=== PATIENT | male | born 1990 | race African-American/Black ===

== ENCOUNTER 2019-12-01 01:43 | Inpatient (IN) | payer MEDICAID ==
[~2019-12-01] VITALS: Ht 170.2 cm; Wt 65.8 kg
[2019-12-01] MEDS ORDERED: SODIUM CHLORIDE 0.9% 1,000 ML IV ONE ×2 (07:09→08:14)
[2019-12-01] MEDS ORDERED: MORPHINE SULFATE 4 MG/ML CPJ (NOT FOR IM USE) IV ONE (07:15)
[2019-12-01 07:40] LABS: HEMATOCRIT. 54.2 % (42.0-52.0); HEMOGLOBIN. 16.9 g/dL (14.0-18.0); MEAN CORPUSCULAR HEMOGLOBIN 27.1 pg (28.0-32.0); MEAN CORPUSCULAR VOLUME 86.6 fL (80.0-94.0); MEAN PLATELET VOLUME 10.5 fl (7.4-10.4); PLATELET 311 x1000/uL (130-400); RED BLOOD CELL COUNT 6.26 mill/uL (4.7-6.1); RED CELL DISTRIBUTION WIDTH 12.6 % (11.6-14.6)
[2019-12-01 07:47] LABS: CHLORIDE 99 mEq/L (98-107)
[2019-12-01 07:57] LABS: BETA HYDROXYBUTYRATE 9.8 mMol/L (0.0-0.3)
[2019-12-01 08:08] LABS: PLATELET ESTIMATE NORMAL
[2019-12-01] MEDS ORDERED: INSULIN REGULAR (DRIP) 100 UNITS in SODIUM CHLORIDE 0.9% 99 ML IV SCH (08:30)
[2019-12-01 08:39] LABS: BG CARBOXYHEMOGLOBIN 0.9 % (0.5-1.5); BG DEOXYHEMOGLOBIN 2.3 % (0.0-5.0); BG HCO3 ACT 5.7 mmol/L (22.0-26.0); BG METHEMOGLOBIN 0.3 % (0.0-1.5); BG OXYGEN SATURATION 97.7 % (92.0-98.5); BG OXYHEMOGLOBIN 96.5 % (94.0-97.0); BG PCO2 19.1 mmHg (35.0-45.0); BG PH 7.095 (7.350-7.450); BG PO2 122.6 mmHg (75.0-100.0); BG SAMPLE SITE RIGHT RADIAL; BG TOTAL HEMOGLOBIN 16.4 g/dL (12.0-18.0); BG VENT MODE ROOM AIR
[2019-12-01] MEDS ORDERED: INSULIN REGULAR (DRIP) 100 UNITS in SODIUM CHLORIDE 0.9% 100 ML IV SCH (09:10)
[2019-12-01] MEDS ORDERED: SODIUM CHLORIDE 0.9% 1,000 ML IV SCH (09:10)
[2019-12-01] MEDS ORDERED: DEXTROSE 50% WATER 50ML SYRINGE IV PRN ×2 (09:15)
[2019-12-01] MEDS ORDERED: CLONIDINE 0.1MG TABLET PO PRN (09:15)
[2019-12-01] MEDS ORDERED: MAGNESIUM/ALUMINUM HYDROXIDE/SIMETHICONE 30ML UDC PO PRN (09:15)
[2019-12-01] MEDS ORDERED: IPRATROPIUM/ALBUTEROL 0.5-3(2.5)MG/3ML NEB NEB PRN (09:15)
[2019-12-01] MEDS ORDERED: ACETAMINOPHEN 325MG TABLET PO PRN (09:15)
[2019-12-01] MEDS ORDERED: ONDANSETRON HCL 4MG/2ML INJ IV PRN (09:15)
[2019-12-01] MEDS ORDERED: NITROGLYCERIN 0.4MG TABLET SL SL PRN (09:15)
[2019-12-01] MEDS ORDERED: DOCUSATE SODIUM 100MG CAPSULE PO PRN (09:15)
[2019-12-01] MEDS: BLOOD SUGAR DIAGNOSTIC STRIP TEST SCH ×8 (10:02→17:26)
[2019-12-01] MEDS: DEXT 5%/0.9% NACL 1,000 ML IV SCH (16:18)
[2019-12-01 17:04] LABS: CHLORIDE 113 mEq/L (98-107)
[2019-12-01 17:09] LABS: PHOSPHORUS 2.4 mg/dL (2.5-4.9)
[2019-12-01 19:37] LABS: *AMPHETAMINES SCREEN URINE NEGATIVE (NEGATIVE); *BARBITURATES SCREEN URINE NEGATIVE (NEGATIVE); *BENZODIAZEPINES SCREEN URINE NEGATIVE (NEGATIVE); *COCAINE SCREEN URINE NEGATIVE (NEGATIVE); METHADONE URINE SCREEN NEGATIVE (NEGATIVE); OPIATES URINE SCREEN PRESUMTIVE POSITIVE (NEGATIVE)
[2019-12-01 19:38] LABS: CANNABINOID URINE SCREEN PRESUMTIVE POSITIVE (NEGATIVE); PHENCYCLIDINE URINE SCREEN NEGATIVE (NEGATIVE)
[2019-12-01] MEDS ORDERED: KETOROLAC 15MG/ML VIAL IV PRN (22:00)
[2019-12-02] MEDS ORDERED: SODIUM PHOS,M-BASIC-D-BASIC 10 MM in DEXT 5% WATER 250 ML IV NR (03:00)
[2019-12-02 06:35] LABS: BASOPHILS % 0.6 % (0.0-2.0); EOSINOPHILS % 0.1 % (0.0-5.0); HEMATOCRIT. 45.9 % (42.0-52.0); HEMOGLOBIN. 15.1 g/dL (14.0-18.0); LYMPHOCYTES % 9.2 % (20.0-50.0); MEAN PLATELET VOLUME 9.2 fl (7.4-10.4); MONOCYTES % 13.1 % (2.0-8.0); PLATELET 261 x1000/uL (130-400); RED CELL DISTRIBUTION WIDTH 12.4 % (11.6-14.6)
[2019-12-02 06:49] LABS: PHOSPHORUS 2.1 mg/dL (2.5-4.9)
[2019-12-02 09:14] LABS: BASOPHILS % 0.7 % (0.0-2.0); EOSINOPHILS % 0.1 % (0.0-5.0); HEMATOCRIT. 46.8 % (42.0-52.0); HEMOGLOBIN. 15.5 g/dL (14.0-18.0); LYMPHOCYTES % 11.5 % (20.0-50.0); MEAN CORPUSCULAR HEMOGLOBIN 27.2 pg (28.0-32.0); MEAN CORPUSCULAR VOLUME 82.2 fL (80.0-94.0); MONOCYTES % 13.8 % (2.0-8.0); NEUTROPHILS % 73.9 % (40.0-76.0); RED CELL DISTRIBUTION WIDTH 12.4 % (11.6-14.6)
[2019-12-02 09:23] LABS: CHLORIDE 112 mEq/L (98-107)
[2019-12-02] MEDS ORDERED: DEXTROSE 50% WATER 50ML SYRINGE IV PRN (10:15)
[2019-12-02 11:08] LABS: MEAN PLATELET VOLUME 9.4 fl (7.4-10.4); PLATELET 268 x1000/uL (130-400)
[2019-12-02 12:00] VITALS: BP 138/62
[2019-12-02] MEDS: DEXT 5%/0.9% NACL 1,000 ML IV SCH (12:00)
[2019-12-02] MEDS: INSULIN LISPRO 100 UNITS/ML SUBCUT SCH ×5 (12:20→21:35)
[2019-12-02] MEDS: BLOOD SUGAR DIAGNOSTIC STRIP TEST SCH ×3 (12:32→21:24)
[2019-12-02] MEDS: PANTOPRAZOLE SODIUM 40 MG/VIAL IV SCH (12:32)
[2019-12-02] MEDS: LISINOPRIL 20MG TABLET PO SCH ×2 (12:33→21:14)
[2019-12-02 13:32] VITALS: BP 138/61
[2019-12-02] MEDS ORDERED: SODIUM PHOS,M-BASIC-D-BASIC 20 MM in DEXT 5% WATER 243.3333 ML IV SCH (14:00)
[2019-12-02 20:00] VITALS: BP 112/53
[2019-12-03] VITALS: BP 115/55
[2019-12-03 04:00] VITALS: BP 124/46
[2019-12-03] MEDS: INSULIN LISPRO 100 UNITS/ML SUBCUT SCH ×4 (06:22→13:46)
[2019-12-03] MEDS: BLOOD SUGAR DIAGNOSTIC STRIP TEST SCH ×2 (06:26→12:56)
[2019-12-03 08:00] VITALS: BP 134/71
[2019-12-03] MEDS: PANTOPRAZOLE SODIUM 40 MG/VIAL IV SCH (09:13)
[2019-12-03] MEDS: LISINOPRIL 20MG TABLET PO SCH (09:14)
[2019-12-03] MEDS: INSULIN GLARGINE UD 100 UNITS/ML SYR SUBCUT SCH ×2 (11:51→11:53)
[2019-12-03 12:00] VITALS: BP 131/76
[2019-12-03 15:02] VITALS: BP 134/74
[2019-12-03 16:00] VITALS: BP 128/82
== END 2019-12-03 17:23 | disposition home or self-care (01) | DRG 420 ==
LOC: ER 01:43 → EDBEDREQ 08:35 → EDBEDREQTM 08:35 → 6EST 12-02 08:30 → EDBEDREQSVC 12-02 10:24 → ENRESERV 12-02 10:45
PROVIDERS: ADMIT Internal Medicine; ATTEND Internal Medicine
DX: E11.10 Type 2 diabetes mellitus with ketoacidosis without coma (principal); E87.5 Hyperkalemia; E87.1 Hypo-osmolality and hyponatremia; Z79.4 Long term (current) use of insulin; Z91.14 Patient's other noncompliance with medication regimen; Z91.19 Patient's noncompliance with other medical treatment and regimen
CPT/HCPCS: 36415; 36600; 71045; 80048; 80053; 80305; 82010; 82375; 82805; 82962; 83036; 83735; 84100; 84484; 85025; 93005; 93970; 99291; C9113; J1815; J2270; J3490; J7030; J7040; J7042; J7050; J7060

== ENCOUNTER 2022-10-24 16:37 | Inpatient (IN) | payer MEDICAID, OTHER ==
[~2022-10-24] VITALS: Ht 172.7 cm; Wt 69.4 kg
[2022-10-24] MEDS ORDERED: SODIUM CHLORIDE 0.9% 1,000 ML IV ONE ×4 (17:30→20:45)
[2022-10-24 18:38] LABS: CHLORIDE 96 mEq/L (98-107)
[2022-10-24 18:43] LABS: HEMATOCRIT. 54.2 % (42.0-52.0); HEMOGLOBIN. 15.7 g/dL (14.0-18.0); MEAN CORPUSCULAR HEMOGLOBIN 26.4 pg (28.0-32.0); MEAN CORPUSCULAR VOLUME 91.3 fL (80.0-94.0); MEAN PLATELET VOLUME 9.6 fl (7.4-10.4); PLATELET 528 x1000/uL (130-400); RED BLOOD CELL COUNT 5.94 mill/uL (4.7-6.1); RED CELL DISTRIBUTION WIDTH 14.4 % (11.6-14.6)
[2022-10-24 18:48] LABS: ETHANOL BLOOD < 10 mg/dL
[2022-10-24] MEDS ORDERED: INSULIN REGULAR (DRIP) 100 UNITS in SODIUM CHLORIDE 0.9% 99 ML IV ONE (19:45)
[2022-10-24] MEDS ORDERED: INSULIN REGULAR 100U/100ML PMX 100 ML IV SCH (20:00)
[2022-10-24] MEDS ORDERED: SODIUM BICARBONATE 8.4% 1 MEQ/ML 50ML SYR IV ONE ×2 (20:15→20:45)
[2022-10-24] MEDS ORDERED: INSULIN REGULAR (HUMULIN R) 300UNITS/3ML VIAL IV ONE (20:15)
[2022-10-24 20:31] LABS: CLARITY URINE CLEAR (CLEAR); COLOR URINE YELLOW (YELLOW); KETONES URINE 3+ (NEGATIVE); LEUKOCYTE ESTERASE URINE NEGATIVE (NEGATIVE); NITRITE URINE NEGATIVE (NEGATIVE); OCCULT BLOOD URINE TRACE (NEGATIVE); PROTEIN URINE 1+ (NEGATIVE); SPECIFIC GRAVITY URINE 1.019 (1.005-1.030); UROBILINOGEN URINE 0.2 E.U./dL (0.2-1.0)
[2022-10-24 20:32] LABS: BG BASE EXCESS -28.4 mmol/L (-2.0-2.0); BG CARBOXYHEMOGLOBIN 0.4 % (0.5-1.5); BG DEOXYHEMOGLOBIN 1.9 % (0.0-5.0); BG FRACTION INSPIRED OXYGEN 21; BG HCO3 ACT 2.6 mmol/L (22.0-26.0); BG METHEMOGLOBIN 0.4 % (0.0-1.5); BG OXYGEN SATURATION 98.1 % (92.0-98.5); BG OXYHEMOGLOBIN 97.3 % (94.0-97.0); BG PCO2 12.5 mmHg (35.0-45.0); BG PH 6.931 (7.350-7.450); BG PO2 141.8 mmHg (75.0-100.0); BG SAMPLE SITE LEFT RADIAL; BG TOTAL HEMOGLOBIN 15.1 g/dL (12.0-18.0); BG VENT MODE ROOM AIR
[2022-10-24 20:45] LABS: *AMPHETAMINES SCREEN URINE PRESUMTIVE POSITIVE (NEGATIVE); *BARBITURATES SCREEN URINE NEGATIVE (NEGATIVE); *BENZODIAZEPINES SCREEN URINE NEGATIVE (NEGATIVE); *COCAINE SCREEN URINE NEGATIVE (NEGATIVE); CANNABINOID URINE SCREEN PRESUMTIVE POSITIVE (NEGATIVE); METHADONE URINE SCREEN NEGATIVE (NEGATIVE); OPIATES URINE SCREEN NEGATIVE (NEGATIVE); PHENCYCLIDINE URINE SCREEN NEGATIVE (NEGATIVE)
[2022-10-24] MEDS ORDERED: MAGNESIUM/ALUMINUM HYDROXIDE/SIMETHICONE 30ML UDC PO PRN (21:15)
[2022-10-24] MEDS ORDERED: DIPHENHYDRAMINE 50MG/ML VIAL IV PRN (21:15)
[2022-10-24] MEDS ORDERED: ONDANSETRON HCL 4MG/2ML INJ IV PRN (21:15)
[2022-10-24] MEDS ORDERED: HYDROCODONE/ACETAMINOPHEN 7.5/325MG TABLET PO PRN (21:15)
[2022-10-24] MEDS ORDERED: NA PHOS,M-B/NA PHOS,DI-BA ENEMA 118ML PR PRN (21:15)
[2022-10-24] MEDS ORDERED: HYDROCODONE/ACETAMINOPHEN 5/325MG TABLET PO PRN (21:15)
[2022-10-24] MEDS ORDERED: DOCUSATE SODIUM 100MG CAPSULE PO PRN (21:15)
[2022-10-24] MEDS ORDERED: IPRATROPIUM/ALBUTEROL 0.5-3(2.5)MG/3ML NEB HHN PRN (21:15)
[2022-10-24] MEDS ORDERED: ACETAMINOPHEN 325MG TABLET PO PRN ×2 (21:15)
[2022-10-24] MEDS ORDERED: GUAIFENESIN 200MG/10ML SUGAR FREE UDC PO PRN (21:15)
[2022-10-24] MEDS ORDERED: CLONIDINE 0.1MG TABLET PO PRN (21:15)
[2022-10-24 21:55] LABS: CHLORIDE 105 mEq/L (98-107)
[2022-10-24] MEDS ORDERED: ENOXAPARIN 40MG/0.4ML SYR SUBCUT SCH (21:59)
[2022-10-24] MEDS ORDERED: SODIUM CHLORIDE 0.45% 1,000 ML IV ONE (22:00)
[2022-10-24] MEDS ORDERED: CALCIUM GLUCONATE 1GM PREMIX 50 ML IV NR (22:00)
[2022-10-24 22:07] LABS: PLATELET ESTIMATE MARKEDLY INCREASED
[2022-10-24 22:20] LABS: BETA HYDROXYBUTYRATE 12.8 mMol/L (0.0-0.3)
[2022-10-24 22:31] LABS: BG BASE EXCESS -20.4 mmol/L (-2.0-2.0); BG CARBOXYHEMOGLOBIN 0.8 % (0.5-1.5); BG DEOXYHEMOGLOBIN 1.7 % (0.0-5.0); BG FRACTION INSPIRED OXYGEN 21; BG HCO3 ACT 6.2 mmol/L (22.0-26.0); BG METHEMOGLOBIN 0.6 % (0.0-1.5); BG OXYGEN SATURATION 98.3 % (92.0-98.5); BG OXYHEMOGLOBIN 96.9 % (94.0-97.0); BG PCO2 18.1 mmHg (35.0-45.0); BG PH 7.152 (7.350-7.450); BG PO2 109.2 mmHg (75.0-100.0); BG SAMPLE SITE LEFT RADIAL; BG VENT MODE ROOM AIR
[2022-10-24 23:19] LABS: CHLORIDE 112 mEq/L (98-107)
[2022-10-24 23:30] LABS: HEMATOCRIT. 48.6 % (42.0-52.0); HEMOGLOBIN. 14.9 g/dL (14.0-18.0); MEAN CORPUSCULAR HEMOGLOBIN 26.6 pg (28.0-32.0); MEAN CORPUSCULAR VOLUME 86.9 fL (80.0-94.0); MEAN PLATELET VOLUME 9.4 fl (7.4-10.4); PLATELET 445 x1000/uL (130-400); RED BLOOD CELL COUNT 5.59 mill/uL (4.7-6.1); RED CELL DISTRIBUTION WIDTH 13.6 % (11.6-14.6)
[2022-10-24 23:34] LABS: HDL CHOLESTEROL 71 mg/dL (40-59); LDL CHOLESTEROL 114 mg/dL (5-100); T4 FREE 1.02 ng/dL (0.76-1.46)
[2022-10-24 23:45] VITALS: BP 114/76
[2022-10-25] VITALS (47 sets, daily range): BP systolic 103–157; BP diastolic 43–100
[2022-10-25] MEDS ORDERED: INSULIN REGULAR 100U/100ML PMX 100 ML IV PRN
[2022-10-25] MEDS ORDERED: CEFTRIAXONE 1 G PREMIX 50 ML IV ONE (00:30)
[2022-10-25] MEDS ORDERED: CEFTRIAXONE 1,000 MG in DEXTROSE 5% WATER 50 ML IV SCH (01:00)
[2022-10-25 02:52] LABS: CHLORIDE 121 mEq/L (98-107)
[2022-10-25] MEDS ORDERED: KCL 20MEQ/100ML PREMIX 100 ML IV NR (03:00)
[2022-10-25] MEDS ORDERED: DEXT 5%/0.45% NACL 1000ML 1,000 ML IV ONE (03:30)
[2022-10-25] MEDS: BLOOD SUGAR DIAGNOSTIC STRIP TEST SCH ×17 (05:01→23:45)
[2022-10-25] MEDS ORDERED: POTASSIUM CHLORIDE INJ 40 MEQ in DEXT 5% WATER 250 ML IV ONE (05:15)
[2022-10-25 08:17] LABS: HEMATOCRIT. 44.2 % (42.0-52.0); HEMOGLOBIN. 14.3 g/dL (14.0-18.0); MEAN CORPUSCULAR HEMOGLOBIN 26.3 pg (28.0-32.0); MEAN CORPUSCULAR VOLUME 81.4 fL (80.0-94.0); MEAN PLATELET VOLUME 8.7 fl (7.4-10.4); PLATELET 388 x1000/uL (130-400); RED BLOOD CELL COUNT 5.43 mill/uL (4.7-6.1); RED CELL DISTRIBUTION WIDTH 13.3 % (11.6-14.6)
[2022-10-25 08:23] LABS: CHLORIDE 123 mEq/L (98-107)
[2022-10-25] MEDS ORDERED: DEXTROSE 50% WATER 50ML SYRINGE IV PRN ×3 (08:30→17:30)
[2022-10-25 08:38] LABS: BETA HYDROXYBUTYRATE 1.5 mMol/L (0.0-0.3)
[2022-10-25 08:42] LABS: PHOSPHORUS 0.5 mg/dL (2.5-4.9)
[2022-10-25] MEDS: KCL 20MEQ/100ML X 2 FOR TOTAL KCL 40MEQ/200ML IV SCH ×2 (08:48→08:50)
[2022-10-25] MEDS: PANTOPRAZOLE 40MG DR TABLET PO SCH ×2 (08:49→21:19)
[2022-10-25] MEDS ORDERED: INSULIN REGULAR 100U/100ML PMX 100 ML IV SCH (09:00)
[2022-10-25 09:45] LABS: PLATELET ESTIMATE SLIGHTLY INCREASED
[2022-10-25] MEDS: ENOXAPARIN 40MG/0.4ML SYR SUBCUT SCH (09:55)
[2022-10-25] MEDS ORDERED: POTASSIUM PHOS,M-BASIC-D-BASIC 20 MMOL in DEXT 5% WATER 243.3333 ML IV NR (10:30)
[2022-10-25] MEDS ORDERED: VANCOMYCIN 1G PREMIX 200 ML IV SCH (11:00)
[2022-10-25 11:04] LABS: PLATELET ESTIMATE NORMAL
[2022-10-25] MEDS ORDERED: NALOXONE HCL 0.4MG/ML VIAL IV PRN (11:15)
[2022-10-25] MEDS ORDERED: METRONIDAZOLE 500 MG PREMIX 100 ML IV SCH (13:00)
[2022-10-25 13:03] LABS: CHLORIDE 124 mEq/L (98-107)
[2022-10-25] MEDS: DEXT 5%/0.45% NACL 1000ML 1,000 ML IV SCH ×2 (13:41→20:45)
[2022-10-25] MEDS: PIPERACILLIN/TAZOBACTAM 3.375 G in DEXTROSE 5% WATER 50 ML IV SCH ×2 (13:42→21:18)
[2022-10-25] MEDS ORDERED: VANCOMYCIN 1500MG in DEXTROSE 5% WATER 250ML IV NR (14:00)
[2022-10-25] MEDS: INSULIN REGULAR 100U/100ML PMX 100 ML IV SCH ×3 (15:27→20:43)
[2022-10-25] MEDS ORDERED: BLOOD SUGAR DIAGNOSTIC STRIP TEST SCH (17:50)
[2022-10-25] MEDS: INSULIN LISPRO 100 UNITS/ML SUBCUT SCH ×3 (17:50→20:17)
[2022-10-25 17:58] LABS: CHLORIDE 115 mEq/L (98-107)
[2022-10-25] MEDS ORDERED: INSULIN GLARGINE 100 UNITS/ML SUBCUT SCH (22:00)
[2022-10-25 22:22] LABS: CHLORIDE 116 mEq/L (98-107)
[2022-10-26] VITALS (28 sets, daily range): BP systolic 90–152; BP diastolic 45–116
[2022-10-26] MEDS ORDERED: VANCOMYCIN 1.25GM PMX (XELLIA) 250 ML IV SCH
[2022-10-26 01:09] LABS: CHLORIDE 111 mEq/L (98-107)
[2022-10-26] MEDS: DEXT 5%/0.45% NACL 1000ML 1,000 ML IV SCH ×2 (03:42→10:49)
[2022-10-26] MEDS: PIPERACILLIN/TAZOBACTAM 3.375 G in DEXTROSE 5% WATER 50 ML IV SCH (05:11)
[2022-10-26] MEDS: INSULIN LISPRO 100 UNITS/ML SUBCUT SCH (07:50)
[2022-10-26] MEDS: BLOOD SUGAR DIAGNOSTIC STRIP TEST SCH ×4 (08:29→10:49)
[2022-10-26] MEDS: PANTOPRAZOLE 40MG DR TABLET PO SCH (08:56)
[2022-10-26] MEDS: ENOXAPARIN 40MG/0.4ML SYR SUBCUT SCH (08:57)
[2022-10-26] MEDS: INSULIN REGULAR 100U/100ML PMX 100 ML IV SCH (10:52)
== END 2022-10-26 13:00 | disposition left against medical advice (07) | DRG 720 ==
LOC: ER 16:37 → EDBEDREQ 20:11 → SUPCPDRO 20:16 → ENRESERV 22:29 → CVICU 23:35
PROVIDERS: ADMIT Internal Medicine; ATTEND Internal Medicine
DX: A41.9 Sepsis, unspecified organism (principal); N17.0 Acute kidney failure with tubular necrosis; G92.8 Other toxic encephalopathy; E10.10 Type 1 diabetes mellitus with ketoacidosis without coma; E83.52 Hypercalcemia; E86.0 Dehydration; D75.839 Thrombocytosis, unspecified; E10.65 Type 1 diabetes mellitus with hyperglycemia; R65.20 Severe sepsis without septic shock; K62.89 Other specified diseases of anus and rectum; E87.5 Hyperkalemia; F19.90 Other psychoactive substance use, unspecified, uncomplicated; Z53.29 Procedure and treatment not carried out because of patient's decision for other reasons; Z91.14 Patient's other noncompliance with medication regimen; Z79.4 Long term (current) use of insulin; Z90.49 Acquired absence of other specified parts of digestive tract
CPT/HCPCS: 36415; 36600; 71045; 74176; 80048; 80053; 80061; 80305; 80320; 81003; 82010; 82375; 82805; 82962; 83036; 83605; 83735; 84100; 84145; 84439; 84443; 84484; 85025; 93005; 99291; J0610; J0696; J1650; J1815; J2543; J3370; J3480; J3490; J7030; J7050; J7060; G0480

== ENCOUNTER 2022-11-21 10:58 | Inpatient (IN) | payer MEDICAID ==
[~2022-11-21] VITALS: Ht 170.2 cm; Wt 61.7 kg
[2022-11-21] MEDS ORDERED: SODIUM CHLORIDE 0.9% 1,000 ML IV ONE ×2 (11:45→14:30)
[2022-11-21 12:56] LABS: HEMATOCRIT. 43.5 % (42.0-52.0); HEMOGLOBIN. 13.8 g/dL (14.0-18.0); MEAN CORPUSCULAR HEMOGLOBIN 26.6 pg (28.0-32.0); MEAN PLATELET VOLUME 9.2 fl (7.4-10.4); PLATELET 554 x1000/uL (130-400); RED BLOOD CELL COUNT 5.18 mill/uL (4.7-6.1); RED CELL DISTRIBUTION WIDTH 14.3 % (11.6-14.6)
[2022-11-21 13:05] LABS: CHLORIDE 102 mEq/L (98-107)
[2022-11-21 13:14] LABS: BETA HYDROXYBUTYRATE 8.3 mMol/L (0.0-0.3)
[2022-11-21 13:19] LABS: PLATELET ESTIMATE INCREASED
[2022-11-21] MEDS ORDERED: INSULIN REGULAR 100U/100ML PMX 100 ML IV SCH ×2 (14:30→15:15)
[2022-11-21] MEDS ORDERED: MAGNESIUM/ALUMINUM HYDROXIDE/SIMETHICONE 30ML UDC PO PRN (16:30)
[2022-11-21] MEDS ORDERED: SODIUM BICARBONATE 8.4% 1 MEQ/ML 50ML SYR IV NR (16:30)
[2022-11-21] MEDS ORDERED: ACETAMINOPHEN 325MG TABLET PO PRN (16:30)
[2022-11-21] MEDS ORDERED: KCL 20MEQ/100ML PREMIX 100 ML IV PRN (16:30)
[2022-11-21] MEDS ORDERED: INSULIN REGULAR (HUMULIN R) 300UNITS/3ML VIAL IV PRN (16:30)
[2022-11-21] MEDS ORDERED: ONDANSETRON HCL 4MG/2ML INJ IV PRN (16:30)
[2022-11-21] MEDS ORDERED: GUAIFENESIN 200MG/10ML SUGAR FREE UDC PO PRN (16:30)
[2022-11-21] MEDS: AMLODIPINE 10MG TABLET PO SCH (16:30)
[2022-11-21] MEDS ORDERED: DEXTROSE 50% WATER 50ML SYRINGE IV PRN (16:30)
[2022-11-21] MEDS: SODIUM CHLORIDE 0.9% 1,000 ML IV SCH (16:30)
[2022-11-21] MEDS: BLOOD SUGAR DIAGNOSTIC STRIP TEST SCH ×8 (16:30→23:34)
[2022-11-22] MEDS: BLOOD SUGAR DIAGNOSTIC STRIP TEST SCH ×14 (00:41→21:24)
[2022-11-22] MEDS ORDERED: DEXT 5%/0.9% NACL 1,000 ML IV SCH (02:30)
[2022-11-22] MEDS: SODIUM CHLORIDE 0.9% 1,000 ML IV SCH ×3 (02:30→21:49)
[2022-11-22 02:31] LABS: CHLORIDE 100 mEq/L (98-107)
[2022-11-22 05:58] LABS: HEMATOCRIT. 35.3 % (42.0-52.0); HEMOGLOBIN. 11.7 g/dL (14.0-18.0); MEAN CORPUSCULAR HEMOGLOBIN 26.3 pg (28.0-32.0); MEAN CORPUSCULAR VOLUME 79.3 fL (80.0-94.0); MEAN PLATELET VOLUME 8.1 fl (7.4-10.4); PLATELET 458 x1000/uL (130-400); RED BLOOD CELL COUNT 4.45 mill/uL (4.7-6.1); RED CELL DISTRIBUTION WIDTH 14.1 % (11.6-14.6)
[2022-11-22 06:04] LABS: CHLORIDE 103 mEq/L (98-107)
[2022-11-22 06:12] LABS: BETA HYDROXYBUTYRATE 2.4 mMol/L (0.0-0.3); HDL CHOLESTEROL 35 mg/dL (40-59); LDL CHOLESTEROL 56 mg/dL (5-100)
[2022-11-22] MEDS ORDERED: DEXTROSE 50% WATER 50ML SYRINGE IV PRN (09:45)
[2022-11-22] MEDS ORDERED: INSULIN GLARGINE 100 UNITS/ML SUBCUT NR (09:45)
[2022-11-22 10:31] LABS: NUCLEATED RED BLOOD CELLS 1 /100 WBC; PLATELET ESTIMATE INCREASED
[2022-11-22] MEDS: AMLODIPINE 10MG TABLET PO SCH (10:49)
[2022-11-22] MEDS ORDERED: SULFAMETHOXAZOLE/TRIMETHOPRIM 400/80MG TAB PO SCH (11:00)
[2022-11-22] MEDS ORDERED: NALOXONE HCL 0.4MG/ML VIAL IV PRN (12:00)
[2022-11-22] MEDS ORDERED: VANCOMYCIN 1,500 MG in DEXT 5% WATER 250 ML IV NR (12:00)
[2022-11-22] MEDS: INSULIN LISPRO 100 UNITS/ML SUBCUT SCH ×4 (14:03→21:31)
[2022-11-22] MEDS: PIPERACILLIN/TAZOBACTAM 3.375 G in DEXTROSE 5% WATER 50 ML IV SCH ×2 (14:28→21:29)
[2022-11-22 17:00] VITALS: BP 117/55
[2022-11-22 20:40] VITALS: BP 124/45
[2022-11-23] VITALS: BP 127/51
[2022-11-23] MEDS ORDERED: VANCOMYCIN 1.25GM PMX (XELLIA) 250 ML IV SCH
[2022-11-23 04:00] VITALS: BP 134/74
[2022-11-23] MEDS: PIPERACILLIN/TAZOBACTAM 3.375 G in DEXTROSE 5% WATER 50 ML IV SCH ×3 (05:32→21:01)
[2022-11-23] MEDS: INSULIN LISPRO 100 UNITS/ML SUBCUT SCH ×4 (05:44→21:00)
[2022-11-23] MEDS: BLOOD SUGAR DIAGNOSTIC STRIP TEST SCH ×4 (07:20→21:01)
[2022-11-23 08:00] VITALS: BP 121/62
[2022-11-23] MEDS: SODIUM CHLORIDE 0.9% 1,000 ML IV SCH ×2 (08:30→18:30)
[2022-11-23] MEDS: AMLODIPINE 10MG TABLET PO SCH (09:31)
[2022-11-23] MEDS: INSULIN GLARGINE 100 UNITS/ML SUBCUT SCH ×2 (10:00→21:02)
[2022-11-23 12:00] VITALS: BP 135/70
[2022-11-23] MEDS: VANCOMYCIN 1.25GM PMX (XELLIA) 250 ML IV SCH ×2 (12:18→21:05)
[2022-11-23 15:15] LABS: BASOPHILS % 0.3 % (0.0-2.0); EOSINOPHILS % 0.9 % (0.0-5.0); HEMATOCRIT. 34.8 % (42.0-52.0); HEMOGLOBIN. 11.6 g/dL (14.0-18.0); LYMPHOCYTES % 8.6 % (20.0-50.0); MEAN CORPUSCULAR HEMOGLOBIN 26.6 pg (28.0-32.0); MEAN PLATELET VOLUME 8.7 fl (7.4-10.4); MONOCYTES % 6.9 % (2.0-8.0); NEUTROPHILS % 83.3 % (40.0-76.0); PLATELET 424 x1000/uL (130-400); RED BLOOD CELL COUNT 4.35 mill/uL (4.7-6.1); RED CELL DISTRIBUTION WIDTH 14.3 % (11.6-14.6)
[2022-11-23 16:00] VITALS: BP 124/70
[2022-11-23] MEDS: DOCUSATE SODIUM 100MG CAPSULE PO PRN (19:53)
[2022-11-23 20:00] VITALS: BP 117/60
[2022-11-23] MEDS: TRAMADOL 50MG TABLET PO PRN (20:00)
[2022-11-24] VITALS: BP 119/62
[2022-11-24] MEDS: SODIUM CHLORIDE 0.9% 1,000 ML IV SCH ×2 (00:02→14:30)
[2022-11-24] MEDS: TRAMADOL 50MG TABLET PO PRN ×4 (02:25→21:50)
[2022-11-24] MEDS: PIPERACILLIN/TAZOBACTAM 3.375 G in DEXTROSE 5% WATER 50 ML IV SCH ×3 (03:54→21:00)
[2022-11-24] MEDS: BLOOD SUGAR DIAGNOSTIC STRIP TEST SCH ×4 (03:54→20:34)
[2022-11-24 08:00] VITALS: BP 115/66
[2022-11-24] MEDS: AMLODIPINE 10MG TABLET PO SCH (09:28)
[2022-11-24] MEDS: INSULIN GLARGINE 100 UNITS/ML SUBCUT SCH ×2 (09:32→21:03)
[2022-11-24] MEDS: INSULIN LISPRO 100 UNITS/ML SUBCUT SCH ×4 (09:33→20:49)
[2022-11-24 10:21] LABS: BASOPHILS % 0.4 % (0.0-2.0); EOSINOPHILS % 1.5 % (0.0-5.0); HEMATOCRIT. 33.2 % (42.0-52.0); HEMOGLOBIN. 10.8 g/dL (14.0-18.0); LYMPHOCYTES % 9.3 % (20.0-50.0); MEAN CORPUSCULAR HEMOGLOBIN 25.9 pg (28.0-32.0); MEAN CORPUSCULAR VOLUME 79.9 fL (80.0-94.0); MEAN PLATELET VOLUME 8.3 fl (7.4-10.4); MONOCYTES % 9.8 % (2.0-8.0); PLATELET 411 x1000/uL (130-400); RED BLOOD CELL COUNT 4.16 mill/uL (4.7-6.1)
[2022-11-24 10:28] LABS: CHLORIDE 93 mEq/L (98-107)
[2022-11-24 12:00] VITALS: BP 103/51
[2022-11-24] MEDS: VANCOMYCIN 1.25GM PMX (XELLIA) 250 ML IV SCH (13:16)
[2022-11-24 16:00] VITALS: BP 108/59
[2022-11-24 20:00] VITALS: BP 125/66
[2022-11-25] VITALS: BP 130/69
[2022-11-25] MEDS: SODIUM CHLORIDE 0.9% 1,000 ML IV SCH ×2 (00:55→10:50)
[2022-11-25] MEDS: VANCOMYCIN 1.25GM PMX (XELLIA) 250 ML IV SCH ×2 (00:55→13:20)
[2022-11-25 04:00] VITALS: BP 136/77
[2022-11-25] MEDS: TRAMADOL 50MG TABLET PO PRN ×2 (04:55→13:21)
[2022-11-25] MEDS: PIPERACILLIN/TAZOBACTAM 3.375 G in DEXTROSE 5% WATER 50 ML IV SCH ×2 (05:02→14:00)
[2022-11-25] MEDS: BLOOD SUGAR DIAGNOSTIC STRIP TEST SCH ×2 (06:27→12:58)
[2022-11-25] MEDS: INSULIN LISPRO 100 UNITS/ML SUBCUT SCH (07:50)
[2022-11-25 08:00] VITALS: BP 113/61
[2022-11-25] MEDS: AMLODIPINE 10MG TABLET PO SCH (09:55)
[2022-11-25] MEDS: DOCUSATE SODIUM 100MG CAPSULE PO PRN (09:55)
[2022-11-25] MEDS: INSULIN GLARGINE 100 UNITS/ML SUBCUT SCH (10:00)
[2022-11-25] MEDS ORDERED: LACTULOSE 20G/30ML UDC PO PRN (10:30)
[2022-11-25] MEDS: DOCUSATE SODIUM 100MG CAPSULE PO SCH ×2 (10:30→17:00)
[2022-11-25 12:00] VITALS: BP 141/72
[2022-11-25] MEDS ORDERED: INSULIN LISPRO 100 UNITS/ML SUBCUT SCH (13:15)
[2022-11-25] MEDS ORDERED: DEXTROSE 50% WATER 50ML SYRINGE IV PRN (13:15)
[2022-11-25 16:25] VITALS: BP 140/72
[2022-11-25] MEDS ORDERED: BLOOD SUGAR DIAGNOSTIC STRIP TEST SCH (17:20)
== END 2022-11-25 17:05 | disposition home or self-care (01) | DRG 720 ==
LOC: ER 10:58 → MICUSO 15:41 → 6EST 11-22 17:03
PROVIDERS: ADMIT Hospitalist; ATTEND Hospitalist
DX: A41.9 Sepsis, unspecified organism (principal); E11.10 Type 2 diabetes mellitus with ketoacidosis without coma; L02.31 Cutaneous abscess of buttock; F17.200 Nicotine dependence, unspecified, uncomplicated; Z79.4 Long term (current) use of insulin; Z91.14 Patient's other noncompliance with medication regimen; Z82.49 Family history of ischemic heart disease and other diseases of the circulatory system
CPT/HCPCS: 36415; 71045; 80048; 80053; 80061; 80202; 82010; 82962; 83036; 85025; 87070; 87077; 87186; 99291; J1815; J2543; J3370; J3490; J7030; J7042; J7060

== ENCOUNTER 2023-02-18 10:53 | Inpatient (IN) | payer MEDICAID ==
[2023-02-18] VITALS (10 sets, daily range): BP systolic 120–149; BP diastolic 71–94
[~2023-02-18] VITALS: Ht 170.2 cm; Wt 77.1 kg
[2023-02-18] MEDS ORDERED: ONDANSETRON HCL 4MG/2ML INJ IM NR (11:15)
[2023-02-18] MEDS ORDERED: SODIUM CHLORIDE 0.9% 1,000 ML IV ONE ×2 (11:15→13:30)
[2023-02-18 12:56] LABS: BG BASE EXCESS -18.3 mmol/L (-2.0-2.0); BG DEOXYHEMOGLOBIN 2.4 % (0.0-5.0); BG FRACTION INSPIRED OXYGEN 21; BG HCO3 ACT 9.3 mmol/L (22.0-26.0); BG METHEMOGLOBIN 0.4 % (0.0-1.5); BG OXYGEN SATURATION 97.6 % (92.0-98.5); BG OXYHEMOGLOBIN 96.2 % (94.0-97.0); BG PCO2 28.2 mmHg (35.0-45.0); BG PH 7.135 (7.350-7.450); BG PO2 126.2 mmHg (75.0-100.0); BG SAMPLE SITE LEFT BRACHIAL; BG TOTAL HEMOGLOBIN 16.7 g/dL (12.0-18.0); BG VENT MODE ROOM AIR
[2023-02-18 13:04] LABS: BASOPHILS % 0.6 % (0.0-2.0); HEMATOCRIT. 48.3 % (42.0-52.0); HEMOGLOBIN. 15.7 g/dL (14.0-18.0); LYMPHOCYTES % 9.8 % (20.0-50.0); MEAN CORPUSCULAR HEMOGLOBIN 27.3 pg (28.0-32.0); MEAN CORPUSCULAR VOLUME 84.3 fL (80.0-94.0); MEAN PLATELET VOLUME 9.4 fl (7.4-10.4); MONOCYTES % 4.2 % (2.0-8.0); NEUTROPHILS % 85.4 % (40.0-76.0); PLATELET 296 x1000/uL (130-400); RED BLOOD CELL COUNT 5.73 mill/uL (4.7-6.1); RED CELL DISTRIBUTION WIDTH 12.9 % (11.6-14.6)
[2023-02-18 13:15] LABS: CHLORIDE 101 mEq/L (98-107)
[2023-02-18] MEDS ORDERED: INSULIN REGULAR 100U/100ML PMX 100 ML IV SCH ×2 (13:30→14:00)
[2023-02-18 13:41] LABS: PHOSPHORUS 5.6 mg/dL (2.5-4.9)
[2023-02-18 13:55] LABS: BETA HYDROXYBUTYRATE 9.4 mMol/L (0.0-0.3)
[2023-02-18 14:00] LABS: CLARITY URINE CLEAR (CLEAR); COLOR URINE YELLOW (YELLOW); KETONES URINE 4+ (NEGATIVE); LEUKOCYTE ESTERASE URINE NEGATIVE (NEGATIVE); NITRITE URINE NEGATIVE (NEGATIVE); OCCULT BLOOD URINE NEGATIVE (NEGATIVE); PROTEIN URINE NEGATIVE (NEGATIVE); SPECIFIC GRAVITY URINE 1.023 (1.005-1.030); UROBILINOGEN URINE 0.2 E.U./dL (0.2-1.0)
[2023-02-18 14:15] LABS: *AMPHETAMINES SCREEN URINE PRESUMTIVE POSITIVE (NEGATIVE); *BARBITURATES SCREEN URINE NEGATIVE (NEGATIVE); *BENZODIAZEPINES SCREEN URINE NEGATIVE (NEGATIVE); *COCAINE SCREEN URINE NEGATIVE (NEGATIVE); CANNABINOID URINE SCREEN PRESUMTIVE POSITIVE (NEGATIVE); METHADONE URINE SCREEN NEGATIVE (NEGATIVE); OPIATES URINE SCREEN NEGATIVE (NEGATIVE); PHENCYCLIDINE URINE SCREEN NEGATIVE (NEGATIVE)
[2023-02-18 14:57] LABS: HEMATOCRIT. 49.5 % (42.0-52.0); HEMOGLOBIN. 15.5 g/dL (14.0-18.0); MEAN CORPUSCULAR VOLUME 85.9 fL (80.0-94.0); MEAN PLATELET VOLUME 8.9 fl (7.4-10.4); PLATELET 300 x1000/uL (130-400); RED BLOOD CELL COUNT 5.76 mill/uL (4.7-6.1); RED CELL DISTRIBUTION WIDTH 12.8 % (11.6-14.6)
[2023-02-18 15:05] LABS: INR 0.9; PROTHROMBIN TIME 10.2 sec (9.6-11.0)
[2023-02-18 15:55] LABS: PLATELET ESTIMATE NORMAL
[2023-02-18] MEDS ORDERED: ONDANSETRON HCL 4MG/2ML INJ IV PRN (19:45)
[2023-02-18] MEDS ORDERED: DEXT 5%/0.45% NACL 1000ML 1,000 ML IV SCH (19:45)
[2023-02-18] MEDS ORDERED: CLONIDINE 0.1MG TABLET PO PRN (19:45)
[2023-02-18] MEDS ORDERED: INSU100I28 SQ (20:26)
[2023-02-18] MEDS ORDERED: INSLIS SUBCUT (20:26)
[2023-02-18 20:54] LABS: CHLORIDE 109 mEq/L (98-107)
[2023-02-18] MEDS ORDERED: ENOXAPARIN 40MG/0.4ML SYR SUBCUT SCH (21:00)
[2023-02-18] MEDS ORDERED: DEXTROSE 50% WATER 50ML SYRINGE IV PRN (21:30)
[2023-02-18] MEDS: SODIUM CHLORIDE 0.9% 1,000 ML IV SCH (21:42)
[2023-02-18] MEDS: INSULIN GLARGINE 100 UNITS/ML SUBCUT SCH (21:53)
[2023-02-18] MEDS: BLOOD SUGAR DIAGNOSTIC STRIP TEST SCH (23:06)
[2023-02-18] MEDS: INSULIN LISPRO 100 UNITS/ML SUBCUT SCH (23:24)
[2023-02-19] VITALS (15 sets, daily range): BP systolic 115–153; BP diastolic 59–72
[2023-02-19] MEDS: SODIUM CHLORIDE 0.9% 1,000 ML IV SCH ×2 (05:45→13:30)
[2023-02-19] MEDS: INSULIN LISPRO 100 UNITS/ML SUBCUT SCH ×2 (05:46→12:00)
[2023-02-19] MEDS: BLOOD SUGAR DIAGNOSTIC STRIP TEST SCH ×2 (05:46→12:19)
[2023-02-19] MEDS ORDERED: PANTOPRAZOLE SODIUM 40 MG/VIAL IV SCH (09:00)
[2023-02-19] MEDS: INSULIN GLARGINE 100 UNITS/ML SUBCUT SCH (09:04)
[2023-02-19] MEDS ORDERED: INSU100I28 SQ (10:28)
[2023-02-19] MEDS ORDERED: INSLIS SUBCUT (10:28)
[2023-02-19] MEDS ORDERED: INSULIN LISPRO 100 UNITS/ML SUBCUT NR (12:30)
== END 2023-02-19 15:20 | disposition home or self-care (01) | DRG 420 ==
LOC: ER 11:20 → CVICU 13:27 → EDBEDREQTM 13:39 → EDBEDREQ 13:39 → EDBEDREQSVC 13:39 → EDBEDREQ 13:40 → ENRESERV 17:19
PROVIDERS: ADMIT Internal Medicine; ATTEND Internal Medicine
DX: E11.10 Type 2 diabetes mellitus with ketoacidosis without coma (principal); G93.41 Metabolic encephalopathy; E87.1 Hypo-osmolality and hyponatremia; E87.5 Hyperkalemia; R65.10 Systemic inflammatory response syndrome (SIRS) of non-infectious origin without acute organ dysfunction; F17.210 Nicotine dependence, cigarettes, uncomplicated; D72.829 Elevated white blood cell count, unspecified; F12.929 Cannabis use, unspecified with intoxication, unspecified
CPT/HCPCS: 36415; 36600; 80048; 80053; 80305; 81003; 82010; 82375; 82805; 82962; 83735; 84100; 84145; 84484; 85025; 99285; C9113; J1815; J2405; J7030